=== PATIENT | female | born 1975 | race Caucasian/White ===

== ENCOUNTER 2017-04-01 12:56 | Emergency (ER) | payer BC, OTHER ==
[2017-04-01] MEDS ORDERED: HYDROcodone/Acetaminophen 5/325 mg Tablet ONE (13:44)
[2017-04-01] MEDS ORDERED: Amoxicillin/Potassium Clav 875 MG TAB ONE (13:45)
== END 2017-04-01 13:50 | disposition home or self-care (01) ==
LOC: BURERS 12:56
DX: H66.011 Acute suppurative otitis media with spontaneous rupture of ear drum, right ear (principal); F17.210 Nicotine dependence, cigarettes, uncomplicated
CPT/HCPCS: 87070; 87077; 87186; 87205; 99283

== ENCOUNTER 2018-05-14 18:11 | Outpatient (CLI) | payer OTHER ==
--- NOTE | 2018-05-15 07:38 | RAD ---
LEFT LEG 2 VIEWS: Date: 05/14/18 No acute fracture or periosteal reaction was seen. There has been a prior ACL construction at the [facility]. No obvious bony abnormalities seen here. IMPRESSION: No acute findings. POS: HOME
== END 2018-05-14 18:12 | disposition home or self-care (01) ==
LOC: BURRAD 18:11
PROVIDERS: ATTEND Family Medicine
DX: M25.562 Pain in left knee (principal)

== ENCOUNTER 2021-12-11 04:07 | Emergency (ER) | payer OTHER, SELFPAY ==
[2021-12-11] MEDS ORDERED: Acetaminophen 500 MG TAB ONE (04:32)
[2021-12-11] MEDS ORDERED: Ondansetron ODT 4 MG TAB ONE (04:32)
[2021-12-11] MEDS ORDERED: AMOXicillin 250 MG CAP ONE (05:12)
== END 2021-12-11 05:15 | disposition home or self-care (01) ==
LOC: BURERS 04:07
DX: R11.2 Nausea with vomiting, unspecified (principal); H92.01 Otalgia, right ear; F17.210 Nicotine dependence, cigarettes, uncomplicated
CPT/HCPCS: 87804; 99284; Q0162